=== PATIENT | female | born 1985 | race Caucasian/White ===

== ENCOUNTER 2017-01-19 12:56 | Inpatient (IN) | payer OTHER ==
[2017-01-19 15:00] VITALS: BMI 21.7
--- NOTE | 2017-01-19 17:12 | HP ---
CIWA Score - CIWA Score Nausea/Vomitin Muscle Tremors: 3 Anxiety: 3 Agitation: 1-Slight > Activity Paroxysmal Sweats: 3 Orientation: 0-Oriented Tacttile Disturbances: 3-Moderate Itch/Numb/Burn Auditory Disturbances: 0-None Visual Disturbances: 2-Mild Sensitivity Headache: 2-Mild CIWA-Ar Total Score: 22 Admission ROS S - HPI Chief Complaint: "I can't keep going like this. I am tired of waking up every day and having Alcohol ruin my life and I do not want to lose anything more than what I have already lost." Pt. is here to Detox from alcohol. Allergies/Adverse Reactions: Allergies Allergy/AdvReac Type Severity Reaction Status Date / Time peanut Allergy Severe Hives Verified 01/19/17 17:02 Penicillins Allergy Intermediate Rash Verified 01/19/17 17:02 History of Present Illness: Pt. is a 31 YO female here to Detox from alcohol. This is pt.'s first Detox admission at [facility]. Pt. has had Detox admissions at other locations, including [facility], [facility], and [facility]. Most recent Detox: [facility] ([facility] 07/2016. Exam Limitations: No Limitations - Ebola screening Have you traveled outside of the country in the last 21 days: No Have you had contact with anyone from an Ebola affected area: No Have you been sick,other than usual withdrawal symptoms: No Do you have a fever: No - Review of Systems Constitutional: Chills, Diaphoresis, Fever, Loss of Appetite, Malaise, Night Sweats, Changes in sleep EENT: reports: Hearing Loss (Reduced in Left ear; ru[ptured eardrum after injury (02/2016).) Respiratory: reports: SOB with Exertion, Productive cough Cardiac: reports: Palpitations, Syncope (Most recent episode a few days ago.) GI: reports: Constipated, Diarrhea, Nausea, Poor Appetite, Vomiting, Indigestion , Abdominal cramping : reports: No Symptoms Reported Musculoskeletal: reports: No Symptoms Reported Integumentary: reports: No Symptoms Reported Neuro: reports: Headache, Seizure (Due to ETOH Withdrawal. Most recent: 10/2016. ), Tremors Endocrine: reports: No Symptoms Reported Hematology: reports: Anemia, Easy Bruising Psychiatric: reports: Judgement Intact, Mood/Affect Appropiate, Orientated x3, Anxious, Depressed (and Bipolar disorder, Anxiety. Previously on meds. None current, ran out a few weeks ago.) Other Systems: Reviewed and Negative Patient History - Patient Medical History Hx Anemia: Yes (Took Iron supplement in past.) Hx Asthma: Yes (Uses Albuterol Inhaler.) Hx Chronic Obstructive Pulmonary Disease (COPD): No Hx Cancer: No Hx Cardiac Disorders: No Hx Congestive Heart Failure: No Hx Hypertension: No Hx Hypercholesterolemia: Yes (No meds.) Hx Pacemaker: No HX Cerebrovascular Accident: No Hx Seizures: Yes (Due to ETOH withdrawal; most recent episode: 10/2016.) Hx Dementia: No Hx Diabetes: No Hx Gastrointestinal Disorders: Yes (Pancreatitis (11/2016), Resolved.) Hx Liver Disease: No Hx Genitourinary Disorders: No Hx Sexually Transmitted Disorders: Yes (HPV; 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 - Patient Surgical History Past Surgical History: No Hx Neurologic Surgery: No Hx Cataract Extraction: No Hx Cardiac Surgery: No Hx Lung Surgery: No Hx Breast Surgery: No Hx Breast Biopsy: No Hx Abdominal Surgery: No Hx Appendectomy: No Hx Cholecystectomy: No Hx Genitourinary Surgery: No Hx Section: No Hx Orthopedic Surgery: No Hx Hysterectomy: No Anesthesia Reaction: No - PPD History Previous Implant?: Yes Documented Results: Negative w/o proof Implanted On Prior [facility] Admission?: No PPD to be Administered?: Yes - Reproductive History Patient is a Female of Child Bearing Age (11 -55 yrs old): Yes Last Menstrual Period: 12/15/16 (Patient reports that Menses tend to be irregular.) Patient : No - Smoking Cessation Smoking history: Current every day smoker Have you smoked in the past 12 months: Yes Aproximately how many cigarettes per day: 15 Cigars Per Day: 0 Hx Chewing Tobacco Use: No Initiated information on smoking cessation: Yes 'Breaking Loose' booklet given: 01/19/17 (GIVEN TO PATIENT.) - Substance & Tx. History Hx Alcohol Use: Yes Hx Substance Use: Yes Substance Use Type: Alcohol, Marijuana Hx Substance Use Treatment: Yes (Detox and Rehab at Multiple Locations, Most Recent: [facility] (07/2016).) - Substances Abused Alcohol Route: Oral Frequency: Daily Amount used: Range: 1 Pint - 1 Liter Vodka. Age of first use: 21 Date of Last Use: 01/19/17 Marijuana/Hashish Route: Smoking Frequency: 1-3 times last 30 days Amount used: 1/2 Joint. Age of first use: 14 Date of Last Use: 01/19/17 Family Disease History - Family Disease History Family Disease History: Heart Disease: Father (HTN, Hypercholesterolemia.), Respiratory: Mother (Asthma; Depression / Anxiety.), Other: Mother Admission Physical Exam [facility] - Vital Signs Vital Signs: Vital Signs - 24 hr 01/19/17 14:56 Temperature 98.7 F Pulse Rate 96 H Respiratory 18 Rate Blood Pressure 121/86 - Physical General Appearance: Yes: No Apparent Distress, Nourished, Appropriately Dressed , Tremorous, Anxious HEENTM: Yes: Hearing grossly Normal, Normocephalic, Normal Voice, ODDIE, Pharynx Normal Respiratory: Yes: Chest Non-Tender, Lungs Clear, No Respiratory Distress, No Accessory Muscle Use Neck: Yes: No masses,lesions,Nodules, Supple, Trachea in good position Breast: Yes: Breast Exam Deferred Cardiology: Yes: Regular Rhythm, Regular Rate, S1, S2 Abdominal: Yes: Normal Bowel Sounds, Non Tender, Flat, Soft Genitourinary: Yes: Within Normal Limits Back: Yes: Normal Inspection Musculoskeletal: Yes: full range of Motion, Gait Steady Extremities: Yes: Normal Range of Motion, Non-Tender, Tremors Neurological: Yes: Fully Oriented, Alert, Normal Mood/Affect, Normal Response Integumentary: Yes: Normal Color, Dry, Warm Lymphatic: Yes: Within Normal Limits - Diagnostic (1) Alcohol dependence with uncomplicated withdrawal Current Visit: Yes Status: Acute (2) Cannabis dependence, uncomplicated Current Visit: Yes Status: Acute (3) Nicotine dependence Current Visit: Yes Status: Chronic Qualifiers: Nicotine product type: cigarettes Substance use status: uncomplicated Qualified Code(s): F17.210 - Nicotine dependence, cigarettes, uncomplicated; F17.210 - Nicotine dependence, cigarettes, uncomplicated (4) History of bipolar disorder Current Visit: Yes Status: Chronic (5) Eardrum rupture, left Current Visit: Yes Status: Chronic (6) Asthma Current Visit: Yes Status: Chronic Qualifiers: Asthma severity: mild Asthma persistence: intermittent Asthma complication type: uncomplicated Qualified Code(s): J45.20 - Mild intermittent asthma, uncomplicated; J45.20 - Mild intermittent asthma, uncomplicated; J45.20 - Mild intermittent asthma, uncomplicated (7) History of acute pancreatitis Current Visit: Yes Status: Resolved Cleared for Admission S - Detox or Rehab S Level of Care: Medically Managed Detox Regimen/Protocol: Librium S Breath Alcohol Content Breath Alcohol Content: 0.190 Urine Pregancy Test - Result Urine Test Results: Negative- NO Line Present Urine Drug Screen - Results Drug Screen Negative: No Urine Drug Screen Results: THC-Marijuana, BZO-Benzodiazepines
[2017-01-19] MEDS ORDERED: MAGNESIUM CITRATE 300 ML BOTTLE PO PRN (18:08)
[2017-01-19] MEDS ORDERED: IBUPROFEN 400 MG TABLET (FP) PO PRN (18:08)
[2017-01-19] MEDS ORDERED: ACETAMINOPHEN 325 MG TABLET (FP) PO PRN (18:08)
[2017-01-19] MEDS ORDERED: LOPERAMIDE HCL 2 MG CAPSULE PO PRN (18:08)
[2017-01-19] MEDS ORDERED: NICOTINE POLACRILEX 2 MG GUM BUC PRN (18:08)
[2017-01-19] MEDS ORDERED: MENTHOL/PHENOL 1 EACH UD MM PRN (18:08)
[2017-01-19] MEDS ORDERED: guaiFENesin/D-METHORPHAN HB 10 ML UNIT-DOSE CUPS PO PRN (18:08)
[2017-01-19] MEDS ORDERED: MAGNESIUM HYDROX 2400MG/30ML ORAL SUSPENSION 30 ML CUP PO PRN (18:08)
[2017-01-19] MEDS ORDERED: hydrOXYzine PAMOATE 50 MG CAPSULE (FP) PO PRN (18:08)
[2017-01-19] MEDS ORDERED: P-EPHED 60MG/TRIPROLIDI 2.5MG TABLET PO PRN (18:08)
[2017-01-19] MEDS ORDERED: MAG HYDROX/AL HYDROX/SIMETH 30 ML UNIT-DOSE CUP PO PRN (18:08)
[2017-01-19] MEDS ORDERED: ALBUTEROL SO4 18 GM HFA INHALER IH PRN (18:12)
[2017-01-19] MEDS ORDERED: ONDANSETRON *ODT* 4 MG TABLET SL PRN (18:18)
[2017-01-19] MEDS ORDERED: chlordiazePOXIDE HCL 25 MG CAPSULE PO ONE (18:45)
[2017-01-19] MEDS: NICOTINE 21 MG/24 HOURS TOPICAL PATCH TD SCH (18:57)
[2017-01-19] MEDS: THIAMINE HCL 100 MG TABLET (FP) PO SCH (22:48)
[2017-01-19] MEDS: chlordiazePOXIDE HCL 25 MG CAPSULE PO SCH (22:49)
[2017-01-19] MEDS: diphenhydrAMINE HCL 50 MG CAPSULE PO PRN (22:51)
[2017-01-19 23:58] LABS: URINE APPEARANCE CLOUDY; URINE BILIRUBIN NEGATIVE (NEGATIVE); URINE BLOOD 1+ (NEGATIVE); URINE COLOR YELLOW; URINE GLUCOSE (UA) NEGATIVE (NEGATIVE); URINE KETONE NEGATIVE (NEGATIVE); URINE NITRITE NEGATIVE (NEGATIVE); URINE PROTEIN NEGATIVE (NEGATIVE); URINE UROBILINOGEN NEGATIVE mg/dL (0.2-1.0)
[2017-01-20 00:27] LABS: URINE BACTERIA RARE /hpf (NONE SEEN); URINE MUCUS RARE; URINE RBC 30 /hpf (0-3); URINE WBC 73 /hpf (3-5)
[2017-01-20] MEDS: chlordiazePOXIDE HCL 25 MG CAPSULE PO SCH ×4 (05:30→22:20)
[2017-01-20] MEDS ORDERED: ALBUTEROL SO4 18 GM HFA INHALER IH ONE (05:47)
[2017-01-20 10:29] LABS: MCH 36.8 pg (25.7-33.7); MCHC 33.1 g/dl (32.0-36.0); MEAN CELL VOLUME 111.3 fl (80-96); MEAN PLT VOLUME 8.7 fl (7.5-11.1); PLATELET COUNT 124 K/MM3 (134-434); RDW 14.6 % (11.6-15.6); WHITE BLOOD COUNT 4.7 K/mm3 (4.0-10.0)
[2017-01-20 11:02] LABS: ALBUMIN 3.6 g/dl (3.4-5.0); ALK PHOS 121 U/L (45-117); ANION GAP 8 (8-16); CALCIUM 8.9 mg/dL (8.5-10.1); CO2 28 mmol/L (21-32); CREATININE 0.4 mg/dL (0.55-1.02); GLUCOSE,RANDOM 90 mg/dL (74-106); SGOT/AST 149 U/L (15-37); SGPT/ALT 111 U/L (12-78); TOT PROT 6.2 g/dl (6.4-8.2)
[2017-01-20] MEDS: PRENATAL VITAMINS W/ FOLIC ACID TABLET (FP) PO SCH (11:03)
[2017-01-20] MEDS: NICOTINE 21 MG/24 HOURS TOPICAL PATCH TD SCH (11:05)
[2017-01-20 12:30] LABS: URINE LEUK ESTERASE 3+ (NEGATIVE)
[2017-01-20] MEDS ORDERED: chlordiazePOXIDE HCL 25 MG CAPSULE PO ONE (14:00)
--- NOTE | 2017-01-20 17:43 | CONSULT ---
[facility] Psychiatric Consult - Data Date of interview: 01/20/17 Admission source: [facility] Identifying data: First admission to [facility] for this 31 y/o female seeking detox treatment on for alcohol and marihuana dependence.Patient is ,no children,currently domiciled but facing eviction,unemployed and supported on Public Assistance. Substance Abuse History: Discussed in this section.Patient confirmed this report extracted from [facility]. Smoking Cessation. Smoking history: Current every day smoker. Have you smoked in the past 12 months: Yes. Aproximately how many cigarettes per day: 15. Cigars Per Day: 0. Hx Chewing Tobacco Use: No. Initiated information on smoking cessation: Yes. 'Breaking Loose' booklet given : 01/19/17 (GIVEN TO PATIENT.). - Substance & Tx. History. Hx Alcohol Use: Yes. Hx Substance Use: Yes. Substance Use Type: Alcohol, Marijuana. Hx Substance Use Treatment: Yes (Detox and Rehab at Multiple Locations, Most Recent : [facility] (07/2016).). - Substances Abused. Alcohol. Route: Oral. Frequency: Daily. Amount used: Range: 1 Pint - 1 Liter Vodka. Age of first use : 21. Date of Last Use: 01/19/17. Marijuana/Hashish. Route: Smoking. Frequency: 1-3 times last 30 days. Amount used: 1/2 Joint. Age of first use: 14. Date of Last Use: 01/19/17 Medical History: Bronchial asthma,anemia,dyslipidemia,alcohol-related seizures, HPV infection and a history of pancreatitis (treated). Psychiatric History: Patient reports a history of two psychiatric hospitalizations at [facility].Diagnosed with Bipolar Disorder.Was prescribed effexor 150 mg po bid + lamictal 100 mg po bid + trazodone 100 mg po hs (self-report).Ms Pineda indicates that she has not taken those medications " for a few weeks ".No longer followed at the HELP program ( [facility]) in [facility].No recent OPD care.Patient denies history of suicide attempts. Physical/Sexual Abuse/Trauma History: Denies history of abuse. Additional Comment: Urine Drug Screen Results: THC-Marijuana, BZO- Benzodiazepines.Noted. Mental Status Exam - Mental Status Exam Alert and Oriented to: Time, Place, Person Cognitive Function: Good Patient Appearance: Well Groomed (petite,short stature,appears stated age) Mood: Nervous, Withdrawn, Anxious Affect: Mood Congruent Patient Behavior: Fatigued, Cooperative Speech Pattern: Clear, Appropriate Voice Loudness: Normal Thought Process: Intact, Goal Oriented Thought Disorder: Not Present Hallucinations: Denies Suicidal Ideation: Denies Homicidal Ideation: Denies Insight/Judgement: Poor Sleep: Poorly, Difficulty falling asleep Appetite: Poor, Weight loss (as per self-report) Muscle strength/Tone: Normal Gait/Station: Normal Psychiatric Findings - Problem List ([place] 1, 2,3) (1) Alcohol dependence with uncomplicated withdrawal Current Visit: Yes Status: Acute (2) Cannabis dependence, uncomplicated Current Visit: Yes Status: Acute (3) Nicotine dependence Current Visit: Yes Status: Acute Qualifiers: Nicotine product type: cigarettes Substance use status: uncomplicated Qualified Code(s): F17.210 - Nicotine dependence, cigarettes, uncomplicated; F17.210 - Nicotine dependence, cigarettes, uncomplicated (4) Substance induced mood disorder Current Visit: Yes Status: Acute (5) Asthma Current Visit: Yes Status: Chronic Qualifiers: Asthma severity: mild Asthma persistence: intermittent Asthma complication type: uncomplicated Qualified Code(s): J45.20 - Mild intermittent asthma, uncomplicated; J45.20 - Mild intermittent asthma, uncomplicated; J45.20 - Mild intermittent asthma, uncomplicated (6) History of acute pancreatitis Current Visit: Yes Status: Resolved (7) Insomnia Current Visit: Yes Status: Acute - Initial Treatment Plan Initial Treatment Plan: Psychoeducation.Detoxification.Medications : effexor XR 37.5 mg po daily + trazodone 50 mg po hs.Lamictal not renewed (to be restarted in OPD care).Side effects/benefits of venlafaxine + trazodone are discussed with the patient.She is in agreement with this careplan.Observation.Pharmacy claims are reviewed (medications verified ; scripts issued in October 2016 at the [facility]).
--- NOTE | 2017-01-20 19:15 | PN ---
S CIWA - CIWA Score Nausea/Vomitin Muscle Tremors: 5 Anxiety: 4-Mod. Anxious/Guarded Agitation: 4-Moderately Restless Paroxysmal Sweats: 3 Orientation: 0-Oriented Tacttile Disturbances: 0-None Auditory Disturbances: 0-None Visual Disturbances: 0-None Headache: 0-None Present CIWA-Ar Total Score: 19 BHS Progress Note (SOAP) Subjective: Sweating,anxiety,tremors,interrupted sleep,restless Objective: 01/20/17 19:14 Vital Signs - 8 hr 01/20/17 01/20/17 13:56 17:37 Temperature 97.2 F L 98.2 F Pulse Rate 89 87 Respiratory 16 18 Rate Blood Pressure 134/89 115/86 Laboratory Tests 01/19/17 01/20/17 01/20/17 23:20 08:00 08:00 WBC 4.7 RBC 3.45 L Hgb 12.7 Hct 38.4 MCV 111.3 H MCH 36.8 H MCHC 33.1 RDW 14.6 Plt Count 124 L MPV 8.7 Sodium 138 Potassium 3.7 Chloride 102 Carbon Dioxide 28 Anion Gap 8 BUN 7 Creatinine 0.4 L Creat Clearance w eGFR > 60 Random Glucose 90 Calcium 8.9 Total Bilirubin 1.0 AST 149 H ALT 111 H Alkaline Phosphatase 121 H Total Protein 6.2 L Albumin 3.6 Urine Color Yellow Urine Appearance Cloudy Urine pH 5.0 Ur Specific [place] <= 1.005 Urine Protein Negative Urine Glucose (UA) Negative Urine Ketones Negative Urine Blood 1+ H Urine Nitrite Negative Urine Bilirubin Negative Urine Urobilinogen Negative Ur Leukocyte Esterase 3+ H Urine RBC 30 Urine WBC 73 Ur Epithelial Cells Moderate Urine Bacteria Rare Urine Mucus Rare RPR Titer 01/20/17 08:00 WBC RBC Hgb Hct MCV MCH MCHC RDW Plt Count MPV Sodium Potassium Chloride Carbon Dioxide Anion Gap BUN Creatinine Creat Clearance w eGFR Random Glucose Calcium Total Bilirubin AST ALT Alkaline Phosphatase Total Protein Albumin Urine Color Urine Appearance Urine pH Ur Specific [place] Urine Protein Urine Glucose (UA) Urine Ketones Urine Blood Urine Nitrite Urine Bilirubin Urine Urobilinogen Ur Leukocyte Esterase Urine RBC Urine WBC Ur Epithelial Cells Urine Bacteria Urine Mucus RPR Titer Nonreactive labs noted Assessment: 01/20/17 19:14 Withdrawal sx. Plan: Continue detox
--- NOTE | 2017-01-20 19:53 | EKG ---
Test Reason : Blood Pressure : / mmHG Vent. Rate : 081 BPM Atrial Rate : 081 BPM P-R Int : 134 ms QRS Dur : 072 ms QT Int : 380 ms P-R-T Axes : 043 036 039 degrees QTc Int : 441 ms NORMAL SINUS RHYTHM WITH SINUS ARRHYTHMIA NORMAL ECG NO PREVIOUS ECGS AVAILABLE CLINICAL CORRELATION IS RECOMMENDED Confirmed by GUILLERMINA ROBERTS MD ([id number]) on 01/20/2017 7:53:05 PM Referred By: Confirmed By:GUILLERMINA ROBERTS MD
[2017-01-20] MEDS: traZODone HCL 50 MG TABLET (FP) PO SCH (22:20)
[2017-01-20] MEDS: THIAMINE HCL 100 MG TABLET (FP) PO SCH (22:20)
[2017-01-20] MEDS: diphenhydrAMINE HCL 50 MG CAPSULE PO PRN (22:22)
[2017-01-21] MEDS: chlordiazePOXIDE HCL 25 MG CAPSULE PO SCH ×3 (06:30→17:52)
[2017-01-21] MEDS ORDERED: VENLAFAXINE HCL 75 MG E.R. CAPSULES (FP) PO SCH (10:00)
[2017-01-21] MEDS: PRENATAL VITAMINS W/ FOLIC ACID TABLET (FP) PO SCH (11:04)
[2017-01-21] MEDS: VENLAFAXINE HCL 37.5 MG E.R. CAPSULE (FP) PO SCH (11:05)
[2017-01-21] MEDS: NICOTINE 21 MG/24 HOURS TOPICAL PATCH TD SCH (11:05)
--- NOTE | 2017-01-21 13:08 | PN ---
S CIWA - CIWA Score Nausea/Vomitin Muscle Tremors: 3 Anxiety: 3 Agitation: 2 Paroxysmal Sweats: 1-Minimal Palms Moist Orientation: 0-Oriented Tacttile Disturbances: 1-Very Mild Itch/Numbness Auditory Disturbances: 1-Very Mild Visual Disturbances: 0-None Headache: 2-Mild CIWA-Ar Total Score: 16 BHS Progress Note (SOAP) Subjective: ALERT,IRRITABLE,ANXIOUS,INTERRUPTED SLEEP,TREMOR,PAIN IN THE BODY Objective: 01/21/17 13:05 Vital Signs Temperature 97.2 F L 01/21/17 09:58 Pulse Rate 83 01/21/17 09:58 Respiratory Rate 18 01/21/17 09:58 Blood Pressure 117/70 01/21/17 09:58 O2 Sat by Pulse Oximetry (%) EKG NSR,WITH SINUS ARRHYTHMIA NORMAL ECG 01/21/17 13:06 01/21/17 13:06 Laboratory Last Values WBC 4.7 K/mm3 (4.0-10.0) 01/20/17 08:00 RBC 3.45 M/mm3 (3.60-5.2) L 01/20/17 08:00 Hgb 12.7 GM/dL (10.7-15.3) 01/20/17 08:00 Hct 38.4 % (32.4-45.2) 01/20/17 08:00 MCV 111.3 fl (80-96) H 01/20/17 08:00 MCH 36.8 pg (25.7-33.7) H 01/20/17 08:00 MCHC 33.1 g/dl (32.0-36.0) 01/20/17 08:00 RDW 14.6 % (11.6-15.6) 01/20/17 08:00 Plt Count 124 K/MM3 (134-434) L 01/20/17 08:00 MPV 8.7 fl (7.5-11.1) 01/20/17 08:00 Sodium 138 mmol/L (136-145) 01/20/17 08:00 Potassium 3.7 mmol/L (3.5-5.1) 01/20/17 08:00 Chloride 102 mmol/L (98-107) 01/20/17 08:00 Carbon Dioxide 28 mmol/L (21-32) 01/20/17 08:00 Anion Gap 8 (8-16) 01/20/17 08:00 BUN 7 mg/dL (7-18) 01/20/17 08:00 Creatinine 0.4 mg/dL (0.55-1.02) L 01/20/17 08:00 Creat Clearance w eGFR > 60 (>60) 01/20/17 08:00 Random Glucose 90 mg/dL (74-106) 01/20/17 08:00 Calcium 8.9 mg/dL (8.5-10.1) 01/20/17 08:00 Total Bilirubin 1.0 mg/dL (0.2-1.0) 01/20/17 08:00 AST 149 U/L (15-37) H 01/20/17 08:00 ALT 111 U/L (12-78) H 01/20/17 08:00 Alkaline Phosphatase 121 U/L (45-117) H 01/20/17 08:00 Total Protein 6.2 g/dl (6.4-8.2) L 01/20/17 08:00 Albumin 3.6 g/dl (3.4-5.0) 01/20/17 08:00 Urine Color Yellow 01/19/17 23:20 Urine Appearance Cloudy 01/19/17 23:20 Urine pH 5.0 (5.0-8.0) 01/19/17 23:20 Ur Specific [place] <= 1.005 (1.005-1.025) 01/19/17 23:20 Urine Protein Negative (NEGATIVE) 01/19/17 23:20 Urine Glucose (UA) Negative (NEGATIVE) 01/19/17 23:20 Urine Ketones Negative (NEGATIVE) 01/19/17 23:20 Urine Blood 1+ (NEGATIVE) H 01/19/17 23:20 Urine Nitrite Negative (NEGATIVE) 01/19/17 23:20 Urine Bilirubin Negative (NEGATIVE) 01/19/17 23:20 Urine Urobilinogen Negative mg/dL (0.2-1.0) 01/19/17 23:20 Ur Leukocyte Esterase 3+ (NEGATIVE) H 01/19/17 23:20 Urine RBC 30 /hpf (0-3) 01/19/17 23:20 Urine WBC 73 /hpf (3-5) 01/19/17 23:20 Ur Epithelial Cells Moderate /hpf (FEW) 01/19/17 23:20 Urine Bacteria Rare /hpf (NONE SEEN) 01/19/17 23:20 Urine Mucus Rare 01/19/17 23:20 RPR Titer Nonreactive (NONREACTIVE) 01/20/17 08:00 Assessment: 01/21/17 13:06 Plan: WITHDRAWAL SYMPTOM,URINE FOR C/S,R/O UTI,BACTRIM DS 1 TAB PO BID,D/C TYLENOL ELEVATION OF AST,ALT, REPEAT CPM ,INR IN AM
[2017-01-21] MEDS: chlordiazePOXIDE HCL 25 MG CAPSULE PO PRN (15:31)
[2017-01-21 17:51] LABS: URINE APPEARANCE CLOUDY; URINE BILIRUBIN NEGATIVE (NEGATIVE); URINE BLOOD 1+ (NEGATIVE); URINE COLOR DKYELLOW; URINE GLUCOSE (UA) NEGATIVE (NEGATIVE); URINE KETONE NEGATIVE (NEGATIVE); URINE NITRITE POSITIVE (NEGATIVE); URINE PROTEIN NEGATIVE (NEGATIVE); URINE UROBILINOGEN NEGATIVE mg/dL (0.2-1.0)
[2017-01-21 17:57] LABS: URINE BACTERIA MODERATE /hpf (NONE SEEN); URINE MUCUS RARE; URINE RBC 11 /hpf (0-3); URINE WBC 82 /hpf (3-5)
[2017-01-21 21:22] LABS: URINE LEUK ESTERASE 2+ (NEGATIVE)
[2017-01-21] MEDS: traZODone HCL 50 MG TABLET (FP) PO SCH (22:38)
[2017-01-21] MEDS: THIAMINE HCL 100 MG TABLET (FP) PO SCH (22:38)
[2017-01-21] MEDS: chlordiazePOXIDE 5 MG CAPSULE PO SCH (22:38)
[2017-01-21] MEDS: diphenhydrAMINE HCL 50 MG CAPSULE PO PRN (22:38)
[2017-01-21] MEDS: SULFAMETHOXAZOLE/TRIMETHOPRIM 800MG/160MG D.S. TABLET PO SCH (22:38)
[2017-01-22] MEDS: chlordiazePOXIDE 5 MG CAPSULE PO SCH ×3 (06:12→17:50)
[2017-01-22 10:44] LABS: ALK PHOS 130 U/L (45-117); SGOT/AST 116 U/L (15-37); SGPT/ALT 111 U/L (12-78)
[2017-01-22] MEDS: SULFAMETHOXAZOLE/TRIMETHOPRIM 800MG/160MG D.S. TABLET PO SCH ×2 (11:01→22:40)
[2017-01-22] MEDS: NICOTINE 21 MG/24 HOURS TOPICAL PATCH TD SCH (11:02)
[2017-01-22] MEDS: PRENATAL VITAMINS W/ FOLIC ACID TABLET (FP) PO SCH (11:02)
[2017-01-22] MEDS: VENLAFAXINE HCL 37.5 MG E.R. CAPSULE (FP) PO SCH (11:02)
--- NOTE | 2017-01-22 12:20 | PN ---
S Progress Note (SOAP) Subjective: ALERT,IRRITABLE,ANXIOUS,INTERRUPTED SLEEP Objective: 01/22/17 12:19 Vital Signs Temperature 98.1 F 01/22/17 09:49 Pulse Rate 82 01/22/17 09:49 Respiratory Rate 16 01/22/17 09:49 Blood Pressure 118/77 01/22/17 09:49 O2 Sat by Pulse Oximetry (%) Assessment: 01/22/17 12:19 WITHDRAWAL SYMPTOM Plan: CONTINUE DETOX,URINE FOR C/S PENDING,DISCHARGE IN AM
[2017-01-22] MEDS: chlordiazePOXIDE HCL 25 MG CAPSULE PO PRN (15:35)
[2017-01-22] MEDS: THIAMINE HCL 100 MG TABLET (FP) PO SCH (22:40)
[2017-01-22] MEDS: traZODone HCL 50 MG TABLET (FP) PO SCH (22:40)
[2017-01-22] MEDS: chlordiazePOXIDE HCL 10 MG CAPSULE PO SCH (22:40)
[2017-01-22] MEDS: diphenhydrAMINE HCL 50 MG CAPSULE PO PRN (22:41)
[2017-01-23] MEDS: chlordiazePOXIDE HCL 10 MG CAPSULE PO SCH (05:35)
--- NOTE | 2017-01-23 08:44 | DS ---
[facility] Detox Discharge Summary Admission Date: 01/19/17 Discharge Date: 01/23/17 - History Present History: Alcohol Dependence, Cannabis Dependence Additional Comments: FOLLOW UP WITH AFTER CARE PROGRAM ARRANGEMENT Pertinent Past History: ASTHMA NICOTINE DEPENDENCE HISTORY OF PANCREATITIS UTI BIPOLAR DISORDER - Physical Exam Results Vital Signs: Vital Signs Temperature 97.3 F L 01/23/17 06:17 Pulse Rate 68 01/23/17 06:17 Respiratory Rate 18 01/23/17 06:17 Blood Pressure 130/73 01/23/17 06:17 O2 Sat by Pulse Oximetry (%) Pertinent Admission Physical Exam Findings: WITHDRAWAL SYMPTOM - Treatment Hospital Course: Detox Protocol Followed, Detoxed Safely, Responded well, Discharged Condition Good Patient has Accepted a Rehab Referral to: DECLINED - Medication Discharge Medications: Ambulatory Orders Dronabinol [Marinol -] 5 mg PO BID 01/19/17 Lamotrigine [Lamictal -] 100 mg PO DAILY 01/19/17 Loratadine [Claritin -] 10 mg PO DAILY 01/19/17 Venlafaxine HCl ER [Effexor Xr -] 150 mg PO DAILY 01/19/17 Trazodone HCl 50 mg PO HS #14 tablet 01/20/17 Venlafaxine HCl ER [Effexor Xr -] 75 mg PO DAILY #30 cap.er.[id number] 01/20/17 - Diagnosis (1) Alcohol dependence with uncomplicated withdrawal Current Visit: Yes Status: Acute (2) Cannabis dependence, uncomplicated Current Visit: Yes Status: Acute (3) Insomnia Current Visit: Yes Status: Acute (4) Nicotine dependence Current Visit: Yes Status: Acute Qualifiers: Nicotine product type: cigarettes Substance use status: uncomplicated Qualified Code(s): F17.210 - Nicotine dependence, cigarettes, uncomplicated; F17.210 - Nicotine dependence, cigarettes, uncomplicated (5) Asthma Current Visit: Yes Status: Chronic Qualifiers: Asthma severity: mild Asthma persistence: intermittent Asthma complication type: uncomplicated Qualified Code(s): J45.20 - Mild intermittent asthma, uncomplicated; J45.20 - Mild intermittent asthma, uncomplicated; J45.20 - Mild intermittent asthma, uncomplicated (6) History of bipolar disorder Current Visit: Yes Status: Chronic (7) History of acute pancreatitis Current Visit: Yes Status: Resolved (8) UTI (urinary tract infection) Current Visit: Yes Status: Acute - AMA Did Patient Leave Against Medical Advice: No
[2017-01-23 10:07] VITALS: BP 115/72; PULSE 73; TEMP 97.5
== END 2017-01-23 10:00 | disposition home or self-care (01) | DRG 897 ==
LOC: YASAS 12:56 → Y6N 18:01
PROVIDERS: ADMIT Internal Medicine; ATTEND Internal Medicine
PROC: HZ2ZZZZ Detoxification Services for Substance Abuse Treatment (ICD-10-PCS; principal; 2017-01-19)
DX: F10.230 Alcohol dependence with withdrawal, uncomplicated (principal); N39.0 Urinary tract infection, site not specified; S09.22XA Traumatic rupture of left ear drum, initial encounter; F12.20 Cannabis dependence, uncomplicated; F17.210 Nicotine dependence, cigarettes, uncomplicated; F31.9 Bipolar disorder, unspecified; E78.5 Hyperlipidemia, unspecified; G47.00 Insomnia, unspecified; J45.20 Mild intermittent asthma, uncomplicated; Z87.19 Personal history of other diseases of the digestive system; D64.9 Anemia, unspecified; I49.9 Cardiac arrhythmia, unspecified; Z91.010 Allergy to peanuts; Z88.0 Allergy status to penicillin; Z86.69 Personal history of other diseases of the nervous system and sense organs; Z87.42 Personal history of other diseases of the female genital tract; X58.XXXA Exposure to other specified factors, initial encounter; Y93.9 Activity, unspecified; Y92.9 Unspecified place or not applicable
CPT/HCPCS: 36415; 80053; 81003; 81015; 84075; 84450; 84460; 85027; 86593; 87086; 87186; 93005; 93010

== ENCOUNTER 2019-06-07 13:20 | Inpatient (IN) | payer OTHER ==
--- NOTE | 2019-06-07 14:47 | BHS.RME ---
Substance Use & Tx History - Substance Use History alcohol Substance amount: 2 pints Frequency of use: Daily Substance route: Oral Date of Last Use: 06/07/19 - Last Treatment Date of last treatment: 06/04/19 Treatment type: Substance Use Disorder (GIAN) Where was last treatment: Detox (was in [facility] one day for detox - discharged due to insurance problem but the restriction has been lifted) Physical/Psych/Mental Status - Behavior Eye Contact: Normal - Cooperativeness Cooperativeness: Cooperative, Friendly - Thinking Thought Processes: Logical - Physical Health Problems Is patient presently having any pain?: No Does patient presently have any injuries (include location): No Does patient currently have a fever: No Is patient : No CIWA Nausea/Vomitin Muscle Tremors: 3 Anxiety: 4-Mod. Anxious/Guarded Agitation: 1-Slight > Activity Paroxysmal Sweats: 1-Minimal Palms Moist Orientation: 0-Oriented Tacttile Disturbances: 1-Very Mild Itch/Numbness Auditory Disturbances: 1-Very Mild Visual Disturbances: 1-Very Mild Sensitivity Headache: 2-Mild CIWA-Ar Total Score: 16
[2019-06-07 15:32] VITALS: BMI 23.8
--- NOTE | 2019-06-07 18:18 | HP ---
CIWA Score Nausea/Vomitin Muscle Tremors: 3 Anxiety: 4-Mod. Anxious/Guarded Agitation: 1-Slight > Activity Paroxysmal Sweats: 1-Minimal Palms Moist Orientation: 0-Oriented Tacttile Disturbances: 1-Very Mild Itch/Numbness Auditory Disturbances: 1-Very Mild Visual Disturbances: 1-Very Mild Sensitivity Headache: 2-Mild CIWA-Ar Total Score: 16 - Admission Criteria OASAS Guidelines: Admission for Medically Managed Detox: Requires at least one of the followin. CIWA greater than 12 2. Seizures within the past 24 hours 3. Delirium tremens within the past 24 hours 4. Hallucinations within the past 24 hours 5. Acute intervention needed for co occurring medical disorder 6. Acute intervention needed for co occurring psychiatric disorder 7. Severe withdrawal that cannot be handled at a lower level of care (continued vomiting, continued diarrhea, abnormal vital signs) requiring intravenous medication and/or fluids 8. Patient presents the following: CIWA greater than 12 Admission Criteria Met: Admission criteria met Admitting History and Physical - Past Medical History ...LMP: 12/27/16 - Smoking History Smoking history: Current every day smoker Have you smoked in the past 12 months: Yes Aproximately how many cigarettes per day: 20 - Alcohol/Substance Use Hx Alcohol Use: Yes Admission ROS S - HPI Chief Complaint: "I need detox from alcohol" Allergies/Adverse Reactions: Allergies Allergy/AdvReac Type Severity Reaction Status Date / Time Penicillins Allergy Intermediate Rash Verified 06/07/19 15:26 History of Present Illness: Patient is a 33 years old female with alcohol dependence who presents for detox. Patient reports she was at [facility] ED for intoxication, was given Librium and sent here for detox. Exam Limitations: Intoxication - Ebola screening Have you traveled outside of the country in the last 21 days: No Have you had contact with anyone from an Ebola affected area: No Have you been sick,other than usual withdrawal symptoms: No Do you have a fever: No - Review of Systems Constitutional: Weakness, Weight Stable EENT: reports: Blurred Vision Respiratory: reports: No Symptoms reported Cardiac: reports: Palpitations GI: reports: Abdominal cramping : reports: No Symptoms Reported Musculoskeletal: reports: Back Pain Integumentary: reports: Bruising Neuro: reports: Headache Endocrine: reports: No Symptoms Reported Hematology: reports: No Symptoms Reported Psychiatric: reports: Anxious, Depressed Other Systems: Reviewed and Negative Patient History - Patient Medical History Hx Anemia: Yes (Took Iron supplement in past.) Hx Asthma: Yes (Uses Albuterol Inhaler.) Hx Chronic Obstructive Pulmonary Disease (COPD): No Hx Cancer: No Hx Cardiac Disorders: No Hx Congestive Heart Failure: No Hx Hypertension: No Hx Hypercholesterolemia: Yes (No meds.) Hx Pacemaker: No HX Cerebrovascular Accident: No Hx Seizures: Yes (Due to ETOH withdrawal; most recent episode was on 03/20 2019.) Hx Dementia: No Hx Diabetes: No Hx Gastrointestinal Disorders: Yes (Pancreatitis (11/2016), Resolved.) Hx Liver Disease: No Hx Genitourinary Disorders: No Hx Sexually Transmitted Disorders: Yes (HPV; 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.) Hx Renal Disease (ESRD): No Hx Thyroid Disease: No Hx Human Immunodeficiency Virus (HIV): No Hx Hepatitis C: No (Not sure if she has ever been tested.) Hx Depression: Yes (And Anxiety; Previously on meds.; none current, ran out a few weeks ago.) Hx Suicide Attempt: No Hx Bipolar Disorder: Yes Hx Schizophrenia: No - Patient Surgical History Past Surgical History: No - PPD History Previous Implant?: Yes Documented Results: Negative w/proof Implanted On Prior [facility] Admission?: Yes Date: 01/21/17 PPD to be Administered?: Yes - Reproductive History Patient is a Female of Child Bearing Age (11 -55 yrs old): Yes Last Menstrual Period: 04/16/19 Patient : No - Smoking Cessation Smoking history: Current every day smoker Have you smoked in the past 12 months: Yes Aproximately how many cigarettes per day: 20 Cigars Per Day: 0 Hx Chewing Tobacco Use: No Initiated information on smoking cessation: Yes 'Breaking Loose' booklet given: 06/07/19 - Substances abused Alcohol Substance route: Oral Frequency: Daily Amount used: 1 LITER OF VODKA Age of first use: 23 Date of last use: 06/07/19 Admission Physical Exam BHS - Vital Signs Vital Signs: Vital Signs - 24 hr 06/07/19 15:21 Temperature 96.4 F L Pulse Rate 126 H Respiratory 16 Rate Blood Pressure 134/91 - Physical General Appearance: Yes: Alcohol on Breath, Irritable HEENTM: Yes: Hearing grossly Normal, Normocephalic, Normal Voice, Pharynx Normal Respiratory: Yes: Chest Non-Tender, Lungs Clear, No Respiratory Distress, No Accessory Muscle Use Neck: Yes: No masses,lesions,Nodules, Supple Breast: Yes: Breast Exam Deferred Cardiology: Yes: Regular Rhythm, S1, S2 Abdominal: Yes: Normal Bowel Sounds, Soft Genitourinary: Yes: Within Normal Limits Back: Yes: Normal Inspection Musculoskeletal: Yes: Back pain Extremities: Yes: Tremors Neurological: Yes: Normal Mood/Affect Integumentary: Yes: Other (bruises) Lymphatic: Yes: Within Normal Limits - Diagnostic (1) Alcohol dependence with withdrawal, uncomplicated Current Visit: No Status: Acute (2) Asthma Current Visit: No Status: Chronic Qualifiers: Asthma severity: mild Asthma persistence: intermittent Asthma complication type: uncomplicated Qualified Code(s): J45.20 - Mild intermittent asthma, uncomplicated (3) Depression Current Visit: Yes Status: Acute Qualifiers: Depression Type: major depressive disorder (4) Cannabis dependence, uncomplicated Current Visit: Yes Status: Acute (5) Bipolar disorder Current Visit: Yes Status: Chronic Qualifiers: Active/Remission status: currently active Current bipolar episode type: mixed Current episode severity: moderate Qualified Code(s): F31.62 - Bipolar disorder, current episode mixed, moderate (6) Nicotine dependence Current Visit: Yes Status: Acute Qualifiers: Nicotine product type: cigarettes Substance use status: uncomplicated Qualified Code(s): F17.210 - Nicotine dependence, cigarettes, uncomplicated Cleared for Admission BHS - Detox or Rehab [facility] Level of Care: Medically Managed Detox Regimen/Protocol: Librium Claeared for Rehab Admission: No Breathalyzer - Breathalyzer Breathalyzer: 0.258 Urine Drug Screen - Test Device Lot number: [id number] Expiration date: 03/15/21 - Control Is test valid?: Yes - Results Drug screen NEGATIVE: No Urine drug screen results: THC-Marijuana, BZO-Benzodiazepines Inpatient Rehab Admission - Rehab Decision to Admit Inpatient rehab admission?: No
[2019-06-07] MEDS ORDERED: BISMUTH SUBSALICYLATE 524 MG/30 ML UD PO PRN (18:29)
[2019-06-07] MEDS ORDERED: MENTHOL/PHENOL 1 EACH UD MM PRN (18:29)
[2019-06-07] MEDS ORDERED: MAG HYDROX/AL HYDROX/SIMETH 30 ML UNIT-DOSE CUP PO PRN (18:29)
[2019-06-07] MEDS ORDERED: IBUPROFEN 400 MG TABLET (FP) PO PRN (18:29)
[2019-06-07] MEDS ORDERED: MAGNESIUM HYDROX 2400MG/30ML ORAL SUSPENSION 30 ML CUP PO PRN (18:29)
[2019-06-07] MEDS ORDERED: ACETAMINOPHEN 325 MG TABLET (FP) PO PRN ×2 (18:29)
[2019-06-07] MEDS ORDERED: MAGNESIUM CITRATE 300 ML BOTTLE PO PRN (18:29)
[2019-06-07] MEDS ORDERED: ONDANSETRON *ODT* 4 MG TABLET SL PRN (18:29)
[2019-06-07] MEDS ORDERED: NICOTINE POLACRILEX 2 MG GUM BUC PRN (18:29)
[2019-06-07] MEDS: NICOTINE 14 MG/24 HOURS TOPICAL PATCH TD SCH (19:22)
[2019-06-07] MEDS: chlordiazePOXIDE HCL 10 MG CAPSULE PO PRN (19:23)
[2019-06-07] MEDS: THIAMINE HCL 100 MG TABLET (FP) PO SCH (22:13)
[2019-06-07] MEDS: hydrOXYzine PAMOATE 25 MG CAPSULE (FP) PO PRN (22:13)
[2019-06-07] MEDS: chlordiazePOXIDE HCL 25 MG CAPSULE PO SCH (22:13)
[2019-06-07] MEDS: METHOCARBAMOL 500 MG TABLET PO PRN (22:14)
[2019-06-07] MEDS: MELATONIN 5 MG TABLETS PO PRN (22:15)
[2019-06-08] MEDS: chlordiazePOXIDE HCL 25 MG CAPSULE PO SCH ×3 (07:06→22:30)
[2019-06-08] MEDS: METHOCARBAMOL 500 MG TABLET PO PRN ×2 (07:09→22:30)
[2019-06-08 09:42] LABS: HEMATOCRIT 40.6 % (32.4-45.2); HEMOGLOBIN 13.9 GM/dL (10.7-15.3); MCH 36.2 pg (25.7-33.7); MCHC 34.1 g/dl (32.0-36.0); MEAN CELL VOLUME 106.1 fl (80-96); MEAN PLT VOLUME 8.3 fl (7.5-11.1); PLATELET COUNT 216 K/MM3 (134-434); RBC 3.83 M/mm3 (3.60-5.2); RDW 16.2 % (11.6-15.6); WHITE BLOOD COUNT 5.2 K/mm3 (4.0-10.0)
[2019-06-08 10:20] LABS: ALBUMIN 4.1 g/dl (3.4-5.0); BILIRUBIN,TOTAL 1.2 mg/dL (0.2-1); BLOOD UREA NITROGEN 8.8 mg/dL (7-18); CALCIUM 9.3 mg/dL (8.5-10.1); CREATININE 0.7 mg/dL (0.55-1.3); POTASSIUM 3.7 mmol/L (3.5-5.1); TOT PROT 6.5 g/dl (6.4-8.2)
[2019-06-08] MEDS: NICOTINE 14 MG/24 HOURS TOPICAL PATCH TD SCH (10:38)
[2019-06-08] MEDS: PRENATAL VITAMINS W/ FOLIC ACID TABLET (FP) PO SCH (10:38)
[2019-06-08] MEDS: hydrOXYzine PAMOATE 25 MG CAPSULE (FP) PO PRN ×2 (12:27→18:34)
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
[2019-06-08] MEDS: GABAPENTIN 300 MG CAPSULE PO SCH ×2 (15:17→22:30)
--- NOTE | 2019-06-08 16:43 | PN ---
S CIWA - CIWA Score Nausea/Vomitin-Mild Nausea/No Vomiting Muscle Tremors: 2 Anxiety: 2 Agitation: 2 Paroxysmal Sweats: 2 Orientation: 0-Oriented Tacttile Disturbances: 2-Mild Itch/Numbness/Burn Auditory Disturbances: 0-None Visual Disturbances: 0-None Headache: 1-Very Mild CIWA-Ar Total Score: 12 BHS Progress Note (SOAP) Subjective: Tremor, sweating, crawling sensation on skin, interrupted sleep, occasional palpitation Objective: 06/08/19 16:41 Last Vital Signs Temp Pulse Resp BP Pulse Ox 97.2 F L 78 18 112/64 06/08/19 12:27 06/08/19 12:27 06/08/19 12:27 06/08/19 12:27 Laboratory Tests 06/08/19 06/08/19 06/08/19 07:10 07:10 07:10 WBC 5.2 RBC 3.83 Hgb 13.9 Hct 40.6 MCV 106.1 H MCH 36.2 H MCHC 34.1 RDW 16.2 H Plt Count 216 MPV 8.3 Sodium 138 Potassium 3.7 Chloride 100 Carbon Dioxide 30 Anion Gap 8 BUN 8.8 Creatinine 0.7 Est GFR (CKD-EPI)AfAm 132.87 Est GFR (CKD-EPI)NonAf 114.64 Random Glucose 84 Calcium 9.3 Total Bilirubin 1.2 H AST 154 H ALT 160 H Alkaline Phosphatase 114 Total Protein 6.5 Albumin 4.1 RPR Titer Nonreactive Labs reviewed: LFTs elevated Assessment: 06/08/19 16:42 Withdrawal sxs Elevated LFTs noted Plan: Continue detox Encouraged PO water intake Elevated LFTs: repeat hepatic function panel
[2019-06-08] MEDS: THIAMINE HCL 100 MG TABLET (FP) PO SCH (22:30)
[2019-06-08] MEDS: MELATONIN 5 MG TABLETS PO PRN (22:30)
[2019-06-08] MEDS: QUEtiapine FUMARATE 100 MG TABLET (FP) PO SCH (22:30)
[2019-06-09] MEDS: chlordiazePOXIDE 5 MG CAPSULE PO SCH ×3 (05:47→22:11)
[2019-06-09] MEDS: GABAPENTIN 300 MG CAPSULE PO SCH ×3 (05:47→22:10)
[2019-06-09] MEDS: METHOCARBAMOL 500 MG TABLET PO PRN ×3 (05:49→22:15)
[2019-06-09] MEDS: NICOTINE 14 MG/24 HOURS TOPICAL PATCH TD SCH (10:13)
[2019-06-09] MEDS: PRENATAL VITAMINS W/ FOLIC ACID TABLET (FP) PO SCH (10:13)
[2019-06-09] MEDS: chlordiazePOXIDE HCL 10 MG CAPSULE PO PRN ×3 (10:15→18:09)
[2019-06-09] MEDS ORDERED: NICOTINE 21 MG/24 HOURS TOPICAL PATCH TD SCH (10:22)
[2019-06-09] MEDS ORDERED: LORATADINE 10 MG TABLET PO PRN (10:22)
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
[2019-06-09 10:30] LABS: ALBUMIN 3.4 g/dl (3.4-5.0); BILIRUBIN,DIRECT 0.2 mg/dL (0.0-0.2); BILIRUBIN,TOTAL 0.5 mg/dL (0.2-1); TOT PROT 5.4 g/dl (6.4-8.2)
[2019-06-09] MEDS: hydrOXYzine PAMOATE 25 MG CAPSULE (FP) PO PRN (18:08)
[2019-06-09] MEDS: MELATONIN 5 MG TABLETS PO PRN (22:11)
[2019-06-09] MEDS: QUEtiapine FUMARATE 100 MG TABLET (FP) PO SCH (22:11)
[2019-06-09] MEDS: THIAMINE HCL 100 MG TABLET (FP) PO SCH (22:17)
[2019-06-10] MEDS: chlordiazePOXIDE HCL 10 MG CAPSULE PO SCH ×3 (06:01→22:16)
[2019-06-10] MEDS: GABAPENTIN 300 MG CAPSULE PO SCH ×3 (06:02→22:16)
[2019-06-10] MEDS: PRENATAL VITAMINS W/ FOLIC ACID TABLET (FP) PO SCH (10:16)
[2019-06-10] MEDS: chlordiazePOXIDE HCL 10 MG CAPSULE PO PRN ×2 (10:18→17:07)
--- NOTE | 2019-06-10 11:47 | PN ---
[facility] Progress Note Note: Patient requests to see narrative writer to resume Buspar she was allegedly on. She does not recall dose she was on. [facility] pharmacy at [address] [place] [address] contacted . According to pharmacy staff, no Rx for buspar is part of patient' s profile. However, script for Gabapentin was last filled in December 2018. Patient is already on Gabapentin 600 mg/tid
--- NOTE | 2019-06-10 12:26 | PN ---
[facility] CIWA - CIWA Score Nausea/Vomitin-Mild Nausea/No Vomiting Muscle Tremors: 1-None Visible, but [place] Anxiety: 2 Agitation: 2 Paroxysmal Sweats: No Perspiration Orientation: 0-Oriented Tacttile Disturbances: 0-None Auditory Disturbances: 0-None Visual Disturbances: 0-None Headache: 1-Very Mild CIWA-Ar Total Score: 7 S Progress Note (SOAP) Subjective: alert,irritable,interrupted sleep Objective: 06/10/19 12:26 Vital Signs Temperature 96.3 F L 06/10/19 08:33 Pulse Rate 106 H 06/10/19 08:33 Respiratory Rate 16 06/10/19 08:33 Blood Pressure 136/96 06/10/19 08:33 O2 Sat by Pulse Oximetry (%) Assessment: 06/10/19 12:26 withdrawal symptom Plan: continue detox,discharge in am
[2019-06-10] MEDS: DOCUSATE SODIUM 100 MG CAPSULE (FP) PO SCH ×2 (13:11→22:28)
[2019-06-10] MEDS: hydrOXYzine PAMOATE 25 MG CAPSULE (FP) PO PRN (17:07)
[2019-06-10] MEDS: THIAMINE HCL 100 MG TABLET (FP) PO SCH (22:16)
[2019-06-10] MEDS: QUEtiapine FUMARATE 100 MG TABLET (FP) PO SCH (22:16)
[2019-06-10] MEDS: METHOCARBAMOL 500 MG TABLET PO PRN (22:17)
[2019-06-11] MEDS ORDERED: chlordiazePOXIDE HCL 10 MG CAPSULE PO ONE (05:00)
[2019-06-11] MEDS: GABAPENTIN 300 MG CAPSULE PO SCH (05:31)
[2019-06-11] MEDS: DOCUSATE SODIUM 100 MG CAPSULE (FP) PO SCH (05:31)
[2019-06-11 06:11] VITALS: BP 105/66; PULSE 86; TEMP 97.7
--- NOTE | 2019-06-11 09:01 | DS ---
[facility] Detox Discharge Summary Admission Date: 06/07/19 Discharge Date: 06/11/19 - History Present History: Alcohol Dependence, Cannabis Dependence - Physical Exam Results Vital Signs: Vital Signs Temperature 97.7 F 06/11/19 06:10 Pulse Rate 86 06/11/19 06:10 Respiratory Rate 16 06/11/19 06:10 Blood Pressure 105/66 06/11/19 06:10 O2 Sat by Pulse Oximetry (%) pt aox3 ambulating well . lungs clear to a/p cor rrr, w/o m abd soft nonder bs+ neuro intact w/o tremors time spent on d/c- 35 minutes - Treatment Hospital Course: Detox Protocol Followed, Detoxed Safely, Responded well, Discharged Condition Good - Medication Discharge Medications: Ambulatory Orders NK [No Known Home Medication] 06/07/19 - Diagnosis (1) Cannabis dependence, uncomplicated Current Visit: Yes Status: Acute (2) Depression Current Visit: Yes Status: Chronic Qualifiers: Depression Type: major depressive disorder Major depression episode severity: unspecified (3) Bipolar disorder Current Visit: Yes Status: Chronic Qualifiers: Active/Remission status: currently active Current bipolar episode type: mixed Current episode severity: moderate Qualified Code(s): F31.62 - Bipolar disorder, current episode mixed, moderate (4) Alcohol dependence with withdrawal, uncomplicated Current Visit: No Status: Acute (5) Asthma Current Visit: No Status: Chronic Qualifiers: Asthma severity: mild Asthma persistence: intermittent Asthma complication type: uncomplicated Qualified Code(s): J45.20 - Mild intermittent asthma, uncomplicated (6) Alcohol related seizure Current Visit: No Status: Resolved - AMA Did Patient Leave Against Medical Advice: No
[2019-06-11] MEDS: hydrOXYzine PAMOATE 25 MG CAPSULE (FP) PO PRN (09:46)
[2019-06-11] MEDS: METHOCARBAMOL 500 MG TABLET PO PRN (09:46)
== END 2019-06-11 09:51 | disposition home or self-care (01) | DRG 775 ==
LOC: YASAS 13:20 → Y6N 15:47
PROVIDERS: ADMIT Allergy & Immunology; ATTEND Allergy & Immunology
PROC: HZ2ZZZZ Detoxification Services for Substance Abuse Treatment (ICD-10-PCS; principal; 2019-06-07)
DX: F10.230 Alcohol dependence with withdrawal, uncomplicated (principal); F12.20 Cannabis dependence, uncomplicated; F17.210 Nicotine dependence, cigarettes, uncomplicated; F31.62 Bipolar disorder, current episode mixed, moderate; F10.24 Alcohol dependence with alcohol-induced mood disorder; F10.282 Alcohol dependence with alcohol-induced sleep disorder; J45.20 Mild intermittent asthma, uncomplicated; E78.5 Hyperlipidemia, unspecified; D64.9 Anemia, unspecified; R94.5 Abnormal results of liver function studies; Z87.19 Personal history of other diseases of the digestive system; Z86.19 Personal history of other infectious and parasitic diseases; Z86.69 Personal history of other diseases of the nervous system and sense organs; Z88.0 Allergy status to penicillin; Z91.410 Personal history of adult physical and sexual abuse
CPT/HCPCS: 36415; 80053; 80076; 81025; 85027; 86593